=== PATIENT | male | born 2000 | race Caucasian/White ===

== ENCOUNTER 2019-05-16 15:15 | Emergency (ER) | payer MEDICAID, SELFPAY ==
[2019-05-16 15:17] VITALS: BP 152/76; PULSE 60; RESP 16; TEMP 36.6; O2SAT 99
--- NOTE | 2019-05-16 16:09 | ED.GENADUL_ITS ---
Discharge Plan Disposition Patient Disposition: HOME Discharge Details Chief Complaint: Laceration Clinical Impression: Laceration of left index finger Primary Care Provider: Flaco Peralta ED Provider: Kenrick Izaguirre Home Meds and New Rx's Prescriptions: New cephalexin [Keflex] 500 mg capsule 500 mg PO Q8H 5 Days Qty: 15 RF: 0 No Action No Known Home Meds RF: 0 Discharge Instructions Instructions: Finger Laceration (ED) Additional Instructions: Your laceration is too old to repair with sutures. Therefore we have decided to pursue secondary intent and leave your wound open. It is very important that you keep the wound clean with soap and water. I have provided you with a short course of antibiotics to prevent secondary infection. Keep splint on finger for at least 3 days while the wound heals. If you have any increasing pain, redness or discharge return to the emergency department for evaluation. Referrals: Flaco Peralta MD [Primary Care Provider] - 1 week Discharge Data Discharge Date/Time-TO BE ENTERED AT DEPARTURE: 05/16/19 16:18 Medical Decision Making This is a nontoxic-appearing 19-year-old male status post 16 hours from a left index finger laceration. His hand was quite dirty with dirt and grind. Copious irrigation performed here. Contraindicated for primary closure at this time based on duration. Will go forward with healing from secondary intent. Wound covered with bacitracin and Steri-Strips. Band-Aid placed over the area. I did place the patient in a volar ulnar finger aluminum splint as the laceration lies over the PIP joint. I will place the patient on a short course of Keflex for prophylactic antibiotic. I instructed the patient regarding wound care along with return precautions. HPI General Date/Time Provider Initiated Documentation: 05/16/19 15:27 . HPI Narrative: Patient is a 19-year-old male who presents to the emergency department over 16 hours status post lacerating his left index finger on a broken beer bottle. Patient states that he washed out the cut immediately. He did not seek medical treatment last night. He was able to get the bleeding under control after roughly 1 hour of direct pressure. He denies any numbness or tingling over the finger. No focal weakness with flexion or extension at the digit. Related Data Home Medications Medication Instructions Recorded Confirmed Unknown [No Known Home Meds] 05/16/19 05/16/19 cephalexin [Keflex] 500 mg PO Q8H 5 Days #15 cap 05/16/19 Previous Rx's Medication Instructions Recorded cephalexin [Keflex] 500 mg PO Q8H 5 Days #15 cap 05/16/19 Allergies Allergy/AdvReac Type Severity Reaction Status Date / Time No Known Allergies Allergy Unverified 05/16/19 15:21 General Stated Complaint: Laceration SHERI: 4 Review of Systems Musculoskeletal Denies deformity, Denies joint swelling, Denies muscle weakness, Denies numbness, Denies stiffness and Denies tingling Neurologic Denies focal weakness, Denies numbness, Denies sensory deficit and Denies tingling Hematologic/Lymphatic Denies easy bleeding and Denies easy bruising PFS Social History Smoking/Tobacco Use Status: Never Alcohol Intake: current Alcohol Intake frequency: a few times a week Drug use: Never Substance use type: does not use Do you feel safe at home: Yes Do you feel safe in your relationship?: Yes Exam Const General: cooperative, healthy appearing, comfortable and no acute distress Resp Effort & Inspection: normal respiratory effort Skin General skin exam: no rashes or lesions noted Extrem Left upper extremity: hand Details: laceration 2nd digit palmar aspect proximal Details: linear, superficial, with motor nerve function intact and with sensation intact; not actively bleeding, no foreign body present, not contaminated and not involving muscle tissue Course Vital Signs Temperature 36.6 C 05/16/19 15:17 Pulse 60 05/16/19 15:17 Respiratory Rate 16 05/16/19 15:17 Blood Pressure 152/76 H 05/16/19 15:17 Pulse Oximetry 99 05/16/19 15:17 Temperature 36.6 C 05/16/19 15:17 Temperature Source Skin 05/16/19 15:17 Pulse 60 05/16/19 15:17 Respiratory Rate 16 05/16/19 15:17 Respiratory Effort Non-Labored 05/16/19 15:20 Blood Pressure 152/76 H 05/16/19 15:17 Blood Pressure Position Sitting 05/16/19 15:17 Pulse Oximetry 99 05/16/19 15:17 Oxygen Delivery Method Room Air 05/16/19 15:17 Oxygen Flow Rate 0 05/16/19 15:17 Pain Level 2 05/16/19 15:17
[2019-05-16 16:15] VITALS: BP 152/76; PULSE 60; RESP 16; TEMP 36.6; O2SAT 99
== END 2019-05-16 16:18 | disposition home or self-care (01) ==
PROVIDERS: Emergency Provider Physician Assistant; PCP Pediatrics
DX: S61.211A Laceration without foreign body of left index finger without damage to nail, initial encounter (principal); W25.XXXA Contact with sharp glass, initial encounter
CPT/HCPCS: 29130; 99283